=== PATIENT | male | born 1990 | race Caucasian/White ===

== ENCOUNTER 2017-05-25 09:54 | Emergency (ER) | payer MEDICARE, OTHER ==
[~2017-05-25] VITALS: Ht 170.2 cm; Wt 75.0 kg
[~2017-05-25 09:54] MED LIST: CEFU1TAB43 PO; DILA100C PO; DILA50CH CHEW; NAPR500 PO; VALP250C PO
[2017-05-25 10:24] VITALS: BP 140/78; PULSE 108; RESP 20; O2SAT 99
[2017-05-25 12:05] LABS: BASOPHIL % 0.2 % (0.0-2.0); EOSINOPHIL % 0.4 % (0.0-4.0); HEMATOCRIT 45.4 % (39.0-51.0); HEMOGLOBIN 16.5 GM/DL (13.0-17.0); LYMPH % 30.5 % (9.0-44.0); MEAN CELL VOLUME 83.9 FL (80.0-100.0); MEAN CORPUSCULAR HEMOGLOBIN 30.5 PG (27.0-34.0); MONO % 8.2 % (0.0-8.0); MONOCYTE # 0.5 TH/MM3 (0-0.9); NEUT % 60.7 % (16.0-70.0); PLATELET COUNT 233 TH/MM3 (150-450); RED BLOOD COUNT 5.42 MIL/MM3 (4.50-5.90); RED CELL DISTRIBUTION WIDTH 13.7 % (11.6-17.2); WHITE BLOOD COUNT 6.7 TH/MM3 (4.0-11.0)
[2017-05-25 12:07] LABS: MEAN CORPUSCULAR HGB CONC 36.3 % (32.0-36.0)
[2017-05-25] MEDS ORDERED: PHEN300C3 PO (12:14)
[2017-05-25] MEDS ORDERED: DIVA500T PO (12:14)
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
[2017-05-25 12:31] LABS: ALBUMIN 4.1 GM/DL (3.4-5.0); ALT (GPT) 40 U/L (12-78); AST (GOT) 17 U/L (15-37); BICARBONATE 27.4 MEQ/L (21.0-32.0); BLOOD UREA NITROGEN 15 MG/DL (7-18); CALCIUM 9.3 MG/DL (8.5-10.1); CHLORIDE 107 MEQ/L (98-107); CREATININE 0.66 MG/DL (0.60-1.30); GLOMERULAR FILTRATION RATE 144 ML/MIN (>89); GLUCOSE,RANDOM 94 MG/DL (74-106); SODIUM (NA) 142 MEQ/L (136-145)
[2017-05-25 12:33] LABS: ALKALINE PHOSPHATASE 110 U/L (45-117); TOTAL BILIRUBIN ADULT 0.2 MG/DL (0.2-1.0); TOTAL PROTEIN 8.1 GM/DL (6.4-8.2)
[2017-05-25 17:02] VITALS: BP 109/54; PULSE 75; RESP 18; O2SAT 98
[2017-05-25] MEDS ORDERED: PHENYTOIN SODIUM 100 MG CAP PO ONE (17:30)
[2017-05-25] MEDS ORDERED: DIVALPROEX SODIUM E.R. 500 MG TAB PO ONE (17:30)
[2017-05-25 19:59] VITALS: BP 127/83; PULSE 84; RESP 17; TEMP 96.3; O2SAT 99
[2017-05-26 00:33] VITALS: BP 116/57; PULSE 76; RESP 16; TEMP 97.7; O2SAT 96
[2017-05-26 06:00] VITALS: BP 114/58; PULSE 77; RESP 16; TEMP 97.6; O2SAT 100
[2017-05-26 09:26] VITALS: BP 114/58; PULSE 77; RESP 16; O2SAT 100
--- NOTE | 2017-05-26 09:44 | PD ---
Physical Exam Time Seen by Provider: 09:[address] Gould evaluated the patient, lifted the Aleman act and cleared the patient for discharge. Data Data Last Documented VS Vital Signs Date Time Temp Pulse Resp B/P (MAP) Pulse Ox O2 Delivery O2 Flow Rate FiO2 05/26/17 09:31 05/26/17 09:26 77 16 100 Room Air 05/26/17 06:00 97.6 Orders Orders Diet Regular Basic (05/25/17 Lunch) Complete Blood Count With Diff (05/25/17 11:42) Comprehensive Metabolic Panel (05/25/17 11:42) Psych Screen (05/25/17 11:42) Drug Screen, Random Urine (05/25/17 11:42) Phenytoin (Dilantin) (05/25/17 12:18) Valproic Acid (Depakene) (05/25/17 12:19) Diet Regular Basic (05/25/17 Dinner) Phenytoin (Dilantin) (05/25/17 17:30) Divalproex Er (Depakote Er) (05/25/17 17:30) Diet Regular Basic (05/26/17 Breakfast) Labs Laboratory Tests Test 05/25/17 10:25 05/25/17 11:30 White Blood Count 6.7 TH/MM3 Red Blood Count 5.42 MIL/MM3 Hemoglobin 16.5 GM/DL Hematocrit 45.4 % Mean Corpuscular Volume 83.9 FL Mean Corpuscular Hemoglobin 30.5 PG Mean Corpuscular Hemoglobin Concent 36.3 % Red Cell Distribution Width 13.7 % Platelet Count 233 TH/MM3 Mean Platelet Volume 8.0 FL Neutrophils (%) (Auto) 60.7 % Lymphocytes (%) (Auto) 30.5 % Monocytes (%) (Auto) 8.2 % Eosinophils (%) (Auto) 0.4 % Basophils (%) (Auto) 0.2 % Neutrophils # (Auto) 4.0 TH/MM3 Lymphocytes # (Auto) 2.0 TH/MM3 Monocytes # (Auto) 0.5 TH/MM3 Eosinophils # (Auto) 0.0 TH/MM3 Basophils # (Auto) 0.0 TH/MM3 CBC Comment AUTO DIFF Differential Comment AUTO DIFF CONFIRMED Platelet Estimate NORMAL Platelet Morphology Comment NORMAL Blood Urea Nitrogen 15 MG/DL Creatinine 0.66 MG/DL Random Glucose 94 MG/DL Total Protein 8.1 GM/DL Albumin 4.1 GM/DL Calcium Level 9.3 MG/DL Alkaline Phosphatase 110 U/L Aspartate Amino Transf (AST/SGOT) 17 U/L Alanine Aminotransferase (ALT/SGPT) 40 U/L Total Bilirubin 0.2 MG/DL Sodium Level 142 MEQ/L Potassium Level 3.8 MEQ/L Chloride Level 107 MEQ/L Carbon Dioxide Level 27.4 MEQ/L Anion Gap 8 MEQ/L Estimat Glomerular Filtration Rate 144 ML/MIN Phenytoin (Dilantin) Level 13.1 MCG/ML Valproic Acid (Depakene) Level 37 MCG/ML Urine Opiates Screen NEG Urine Barbiturates Screen NEG Urine Amphetamines Screen NEG Urine Benzodiazepines Screen NEG Urine Cocaine Screen NEG Urine Cannabinoids Screen NEG MDM Supervised Visit with [facility]: No Narrative Course Dr. Gould evaluated the patient, lifted the Aleman act and cleared the patient for discharge. The water sponger is picking up the patient. Patient contracts safety. Denies suicidal or homicidal ideations. Patient will be provided community resource packet to [facility] for follow-up. Has friends and family for support. Patient was medically cleared by alternate provider prior to psych screening. Patient has been evaluated by psychiatry and and is now cleared for discharge. Diagnosis Primary Impression: Aggressive behavior Referrals: [facility] (Out patient) [facility] Primary Care Physician Psychiatrist Anitha FAITH Behavioral Patient Instructions: General Instructions, Mood Disorders (ED) Additional Instruction: Contract safety to your self and others Follow-up with psychiatry Follow-up with primary care provider Follow-up with Manfred Pond Return to the emergency department immediately with worsening of symptoms Med/Other Pt SpecificInfo: No Change to Meds, No Meds Exist/No RX given Disposition: 01 DISCHARGE HOME Condition: Stable Jenn Whittington May 26, 2017 09:44
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
== END 2017-05-26 10:58 | disposition home or self-care (01) ==
LOC: NEPJ 09:54
DX: F43.25 Adjustment disorder with mixed disturbance of emotions and conduct (principal); G40.909 Epilepsy, unspecified, not intractable, without status epilepticus
CPT/HCPCS: 80053; 80164; 80185; 80307; 85025; 99284